=== PATIENT | female | born 1985 | race Caucasian/White ===

== ENCOUNTER 2016-10-08 09:44 | Emergency (ER) | payer OTHER, SELFPAY ==
[2016-10-08] MEDS ORDERED: NS 1,000 ML IV ONE (10:00)
--- NOTE | 2016-10-08 10:17 | ECGEPIP ---
Stationary ECG Study [facility] - ED Test Date: 2016-10-08 Pat Name: KUNAL SERNA Department: Room: - Gender: F Grape Pruner: [place]IC[place] : 1985 Requested By: Izzy Baires Order Number: [id number] Reading MD: Izzy Baires Measurements Intervals [place] Rate: 98 P: 60 [place]: 140 QRS: 39 QRSD: 98 T: 35 QT: 347 QTc: 445 Interpretive Statements SINUS RHYTHM WITH SINUS ARRHYTHMIA NO PRIOR FOR COMPARISON Electronically Signed On 10-08-2016 10:17:11 EDT by Izzy Baires
[2016-10-08 10:49] LABS: METHADONE URINE NEGATIVE (NEGATIVE)
--- NOTE | 2016-10-08 11:12 | REP ---
PA and lateral chest: There are no comparisons. The lung guthrie are clear. The cardiac size is normal The zaida, mediastinum, and bony thorax are unremarkable. Impression: Negative PA and lateral chest. Body piercing jewelry is incidentally noted. Signed by Natanael Mac MD 10/08/2016 11:03 A
[2016-10-08 11:13] LABS: CONTROL LINE UCG INT CTR LINE PRESENT
[2016-10-08 13:32] VITALS: BP 131/78
== END 2016-10-08 13:45 | disposition home or self-care (01) ==
LOC: M ED 09:44
DX: T40.1X1A Poisoning by heroin, accidental (unintentional), initial encounter (principal); Z72.0 Tobacco use

== ENCOUNTER 2018-11-04 15:07 | Inpatient (IN) | payer SELFPAY ==
[~2018-11-04] VITALS: Ht 167.6 cm; Wt 81.8 kg
[2018-11-04] VITALS (7 sets, daily range): BP systolic 125–150; BP diastolic 55–69; O2SAT 97–98
[2018-11-04] MEDS ORDERED: KETOROLAC 30 MG/ML VIAL (J1885) IV ONE (16:00)
[2018-11-04] MEDS ORDERED: NS 1,000 ML IV ONE (16:00)
[2018-11-04 16:01] LABS: HEMATOCRIT 36.6 % (36.0-47.0); HEMOGLOBIN 11.9 g/dl (12.0-15.5); MEAN CORPUSCULAR HEMOGLOBIN 29.8 pg (27.0-33.0); MEAN CORPUSCULAR HGB CONC 32.5 g/dl (32.0-36.5); MEAN CORPUSCULAR VOLUME 91.5 fl (80.0-96.0); PLATELET COUNT, AUTOMATED 313 10^3/uL (150-450); WHITE BLOOD COUNT 11.7 10^3/uL (4.0-10.0)
[2018-11-04] MEDS ORDERED: ISOVUE-370 76% 100ML VIAL (Q9967) As Ordered ONE (16:04)
[2018-11-04] MEDS ORDERED: methylPREDNISolone INJ 125 MG/2 ML VIAL (J2930) IV ONE (16:15)
[2018-11-04 16:23] LABS: BLOOD UREA NITROGEN 12 MG/DL (7-18); C REACTIVE PROTEIN QUANTITATIV 2.35 MG/DL (0.00-0.30); CALCIUM LEVEL 8.9 MG/DL (8.5-10.1); CARBON DIOXIDE LEVEL 25 MEQ/L (21-32); CHLORIDE LEVEL 111 MEQ/L (98-107); CREATININE FOR GFR 0.59 MG/DL (0.55-1.30); GLOMERULAR FILTRATION RATE > 60.0 (>60); GLUCOSE, FASTING 70 MG/DL (70-100); HCG, SERUM QUANTITATIVE 760 MIU/ML; POTASSIUM SERUM 4.3 MEQ/L (3.5-5.1); SODIUM LEVEL 141 MEQ/L (136-145)
[2018-11-04 16:30] LABS: HCG, SERUM QUALITATIVE POSITIVE (NEGATIVE)
--- NOTE | 2018-11-04 16:37 | REP ---
Clinical: Right-sided swelling. Technique: Axial contrast enhanced images from the mid skull through the thoracic inlet with coronal and sagittal re-formations using 100 ml Isovue 370 intravenous contrast material. Findings: Marked right facial swelling with infiltration and phlegmonous changes overlying the right maxillary region and extending inferiorly to the right submandibular portion of the neck with suspected extension into the right side of the oropharynx. Early progression to abscess formation is suspected and findings are likely related to dental infectious process with abnormal blastic appearance along the right side of the maxilla at the midline as well as extending into the right maxillary sinus and a second area of dental infection involving the right posterior molar along the mandible. The airway remains patent and essentially midline although there is mild mass effect along the right side of the oropharynx. The parapharyngeal and retropharyngeal space is appear relatively normal. Associated right-sided adenopathy is appreciated. Vascular structures are intact and normal/symmetric. Bilateral orbits are symmetric and normal. Impression: Significant infectious process likely extending from dental abscess with blastic expansion to the right of midline maxilla as well as from the dental abscess related to the posterior molar in the right mandible. Marked phlegmonous changes are noted in the subcutaneous tissues and within the right side of the oropharynx surrounding the right mandible with suggestions for impending abscess formation. Likely extension into the right maxillary sinus and associated adenopathy noted. Electronically Signed by Kael Martinez MD 11/04/2018 04:29 P
[2018-11-04 16:41] LABS: ERYTHROCYTE SEDIMENTATION RATE 77 mm/hr (0-20)
[2018-11-04] MEDS ORDERED: AMPICILLIN SOD/SULBACTAM SOD 3 GM in D5W MINI-BAG PLUS 100 ML IV ONE (16:45)
[2018-11-04] MEDS ORDERED: CHLORHEXIDINE GLUCONATE 0.12 % 15ML UDC (PERIDEX ORAL RINSE) As Ordered ONE (17:45)
[2018-11-04] MEDS ORDERED: LIDOCAINE 2% W/ EPINEPHRINE 1.7 ML DENTAL INJ As Ordered ONE (17:46)
[2018-11-04] MEDS ORDERED: LIDOCAINE W/EPINEPHRINE 1% 20ML VIAL As Ordered ONE (17:48)
[2018-11-04] MEDS ORDERED: PHENYLEPHRINE 0.5% NASAL SPRAY 15 ML As Ordered ONE (17:49)
--- NOTE | 2018-11-04 18:10 | HPEPDOC ---
General Date of Admission Date of Service: Nov 04, 2018 Chief Complaint The patient is a 33-year-old female admitted with a reason for visit of Dental Problem. History of Present Illness 33f with history of depression and polysubstance abuse, post- 4 days who presents with facial swelling. This started on monday two days prior to giving . She cracked a tooth in her right lower jaw and developed an abcess in the area. She was treated with iv clindamycin while admitted for her delivery and was dced with oral clinda on monday. She now presents with worsening of the swelling despite the antibiotics. She denies any fever, cp, sob. a full ros was performed and negative except as above Home Medications No Active Prescriptions or Reported Meds Allergies Coded Allergies: No Known Allergies (Verified , 05/22/10) Past Medical History Medical History depression, polysubstance abuse Surgical History no significant hx Family History Significant Family History: Noncontributory Social History * Smoker: current smoker Alcohol: Denies Drugs: cocaine, heroin, IV drug use A-FIB/CHADSVASC A-FIB History Current/History of A-Fib/PAF?: No Current PO Anticoag Therapy: No Age/Risk Factor Scoring CHADSVASC: CHADSVASC Response (Comments) Value Age Risk Factor Age < 65 years old 0 Gender Risk Factor Female 1 Hx of CHF No 0 Hx of HTN No 0 Hx of Stroke/TIA/or VTE No 0 Hx of Diabetes No 0 Hx of Vascular Disease No 0 Total 1 Treatment Treatment ordered: NONE Reason Anticoagulant not given: Not indicated/[id number] Physical Examination General Exam: Positive: Alert, No Acute Distress Eye Exam: Positive: PERRLA, Conjunctiva & lids normal, EOMI; Negative: Sclera icteric ENT Exam: Positive: Atraumatic, Mucous membr. moist/pink, Pharynx Normal, Other ENT (swelling in right face and neck) Neck Exam: Positive: Supple; Negative: JVD, thyromegaly Chest Exam: Positive: Clear to auscultation, Normal air movement Heart Exam: Positive: Rate Normal, Regular Rhythm, Normal S1, Normal S2; Negative: Murmurs, Rubs Telemetry: Positive: No significant arrhythmia Abdomen Exam: Positive: Normal bowel sounds, Soft; Negative: Tenderness, Hepatospenomegaly Extremity Exam: Positive: Normal pulses; Negative: Clubbing, Cyanosis, Edema Skin Exam: Positive: Nl turgor and temperature; Negative: Breakdown, Lesion Neuro Exam: Positive: Normal Gait, Normal Speech, Cranial Nerves 3-12 NL, Reflexes 2+ Psych Exam: Positive: Mental status NL, Mood NL, Oriented x 3 Vital Signs Vital Signs Date Time Temp Pulse Resp B/P (MAP) Pulse Ox O2 Delivery O2 Flow Rate FiO2 11/04/18 17:01 98.7 66 125/71 (89) 99 Laboratory Data Labs 24H Laboratory Tests 2 11/04/18 15:43: Nucleated Red Blood Cells % (auto) 0.0, Erythrocyte Sedimentation Rate 77H, Anion Gap 5L, Glomerular Filtration Rate > 60.0, Blood Urea Nitrogen 12, Creatinine 0.59, Sodium Level 141, Potassium Level 4.3, Chloride Level 111H, Carbon Dioxide Level 25, Calcium Level 8.9, C-Reactive Protein, Quantitative 2.35H, Human Chorionic Gonadotropin, Qual POSITIVEA, Human Chorionic Gonadotropin, Quant 760 11/04/18 15:46: POC Beta HCG, Quantitative 824.8 CBC/BMP Laboratory Tests 11/04/18 15:43 Red Blood Count 4.00, Mean Corpuscular Volume 91.5, Mean Corpuscular Hemoglobin 29.8, Mean Corpuscular Hemoglobin Concent 32.5, Red Cell Distribution Width 14.1, Calcium Level 8.9 Microbiology Microbiology 11/04/18 Blood Culture, Received Pending 11/04/18 Blood Culture, Received Pending Assessment/Plan 33f p/w dental abscess being brought urgently to OR no medical contraindication for surgery continue unasyn per surgery polysubstance abuse pt denies any current drug use monitor for signs of withdrawal Plan / VTE VTE Prophylaxis Ordered?: Yes VTE Exclusion Mechanical Proph: N/A:VTE Prophy Ordered VTE Exclusion Pharmacological: Other (going to surgery today) TABATHA SHIPMAN MD Nov 04, 2018 18:10
[2018-11-04] MEDS ORDERED: LIDOCAINE 2% INJ 100 MG/5 ML SDV (FOR ANES.) As Ordered ONE (19:09)
[2018-11-04] MEDS ORDERED: fentaNYL 250 MCG/5 ML INJECTION (J3010) As Ordered ONE (19:09)
[2018-11-04] MEDS ORDERED: ROCURONIUM BROMIDE 50 MG/5 ML VIAL As Ordered ONE (19:09)
[2018-11-04] MEDS ORDERED: SUGAMMADEX SODIUM 500 MG/5 ML VIAL (BRIDION) As Ordered ONE (19:09)
[2018-11-04] MEDS ORDERED: MIDAZOLAM INJ 2 MG/2 ML VIAL (J2250) As Ordered ONE (19:09)
[2018-11-04] MEDS ORDERED: ONDANSETRON 4MG/2ML VIAL (J2405) As Ordered ONE (19:09)
[2018-11-04] MEDS ORDERED: propofoL 200 MG/20 ML VIAL As Ordered ONE (19:09)
[2018-11-04] MEDS ORDERED: dexameTHASONE 4 MG/ML 1ML VIAL (J1100) As Ordered ONE (19:09)
[2018-11-04] MEDS ORDERED: KETOROLAC 60 MG/2 ML VIAL (J1885) As Ordered ONE (19:09)
[2018-11-04] MEDS ORDERED: METOCLOPRAMIDE INJ 10MG/2ML VIAL (J2765) IV PRN (19:15)
[2018-11-04] MEDS ORDERED: LR 1,000 ML IV SCH (19:15)
[2018-11-04] MEDS ORDERED: PERCOCET 5MG/325MG TAB PO PRN (19:15)
[2018-11-04] MEDS ORDERED: ONDANSETRON 4MG/2ML VIAL (J2405) IV PRN (19:15)
[2018-11-04] MEDS ORDERED: fentaNYL 100 MCG/2 ML INJECTION (J3010) IV PRN (19:15)
[2018-11-04] MEDS ORDERED: MEPERIDINE INJ 25 MG/ML VIAL (J2175) IV PRN (19:15)
[2018-11-04] MEDS: AMPICILLIN SOD/SULBACTAM SOD 3 GM in D5W MINI-BAG PLUS 100 ML IV SCH (23:09)
[2018-11-05 00:30] VITALS: BP 129/74
[2018-11-05 01:30] VITALS: BP 115/62
[2018-11-05 02:00] VITALS: O2SAT 98
[2018-11-05 04:00] VITALS: O2SAT 98
[2018-11-05 05:30] VITALS: BP 119/60
[2018-11-05] MEDS: AMPICILLIN SOD/SULBACTAM SOD 3 GM in D5W MINI-BAG PLUS 100 ML IV SCH ×3 (05:32→17:00)
--- NOTE | 2018-11-05 08:13 | RO ---
DATE OF PROCEDURE: 11/04/2018 SURGEON: Emanuel Sosa MD, DMD PREOPERATIVE DIAGNOSIS: Right submandibular and submasseteric space infections and abscessed tooth #31. POSTOPERATIVE DIAGNOSIS: Status post the above procedure performed, incision and drainage of the aforementioned abscesses and surgical extraction of tooth #31. Anesthesia used general endotracheal anesthesia via nasal ray. SPECIMEN: Aerobes, anaerobes cultures, sensitivities. ANESTHESIA: General endotracheal anesthesia via oral ray. INDICATIONS FOR SURGERY: Alisha is a pleasant 33-year-old female who is 4 days status post childbirth presented to the emergency room this afternoon complaining of tooth pain as well as worsening right facial and neck swelling that has been worsening on a daily basis for the past 7 days. She does report that she has trismus and dysphagia and worsening she does deny fevers. Her clinical examination reveals that she has significant right facial and neck swelling that is indurated with no erythema and tenderness to palpation especially in the right neck area. Her mouth opening is about 10 mm anterior incisors laid between her and teeth. She does have a very soft and non elevated floor of mouth. Her right posterior lower vestibule is soft. However, very tender to palpation and she does have a grossly decayed tooth #31. He her white count is 11,000 on admission and she is afebrile. Vital signs stable. CT scan was reviewed which shows fluid collections and loculations in the right submandibular, submasseteric and slightly into the sublingual space with no airway deviation. A complete history and physical was performed as in the patient's chart and informed consent was obtained and discussed with the patient and was signed. DESCRIPTION OF PROCEDURE: The patient was taken back to the operating room. She was laid supine on the operating room table. Ulnar nerve protectors were placed. Noninvasive cardiac monitors were applied. At that point the patient underwent general anesthesia was intubated with an oral ray. She was then prepped and draped in the usual sterile fashion. A time-out procedure was performed to identify the patient procedure and any other precautions. She was already given preoperative antibiotics in the emergency room earlier and did not meet criteria for a next dose until later tonight. Moist throat pack was inserted in the patient's oropharynx followed by the administration of four carpules of 2% lidocaine with 1:100,000 epinephrine as local infiltration and blocks. The full-thickness flap was released distal tooth #31 into the sulcus of tooth number 31, 30, 29, 28, 27. Flap was fully reflected and dissected subperiosteally all the way down to the inferior border of the mandible where an abundant amount purulence was encountered and sampled for aerobes, anaerobes cultures and sensitivity. At this point a small amount of buccal bone was removed from tooth #31 which was elevated out with ease with forceps and a straight elevator socket was copiously irrigated and curetted and an abundant amount of debridement and curettage and irrigation in the subperiosteal area of the right posterior mandible was performed all the way down to the inferior border of the mandible. At this point attention was then given to the right neck where a 15 blade was used to make a 1.5 cm incision about two fingerbreadths below the inferior border of the mandible and a skin incision was made through skin and subcutaneous tissue. Tonsils were then used for blunt dissection through the platysma muscle into the subcutaneous tissue into the submandibular space sublingual space. Finger blunt dissection was also performed into the aforementioned spaces to break up any loculations and remove any necrotic tissue. The spaces were copiously irrigated. Dominik drains were then placed in the right submandibular and right submasseteric spaces and secured to the skin with 3-0 silk sutures. The neck dressing was placed and the oral cavity was irrigated and suctioned and as I mentioned before the intraoral flap was closed primarily with 3-0 chromic sutures. The throat pack was removed. The patient was awakened from general anesthesia and taken back to the PACU. Estimated blood loss about 10 mL. There were two drains placed, once in the right submandibular and one in the right submasseteric spaces. 1/4 inches Dominik drains. COMPLICATIONS: None to mention at time of surgery.
[2018-11-05] MEDS ORDERED: NICOTINE 21MG/24HR 1 EA TRANSDERMAL TD SCH (09:00)
[2018-11-05] MEDS ORDERED: ACETAMINOPHEN TAB 650MG DOSE (2X325MG) PO PRN (11:00)
[2018-11-05 14:00] VITALS: BP 117/59
[2018-11-05] MEDS ORDERED: IBUPROFEN 400 MG TAB PO SCH (14:00)
--- NOTE | 2018-11-05 14:09 | IPNPDOC ---
Text Note Date of Service The patient was seen on 11/05/18. NOTE Subjective: Patient is a 33-year-old female who recently gave who came back to the hospital with complaint of facial swelling. Patient was seen by oral surgery who took the patient to the operating room to do an incision and drainage on a dental abscess. Patient says she was doing well today. She still was in some pain in the dressing was bothering her however, she felt better now that the abscess was drained. Oral surgery says that they will come and reevaluate her later on tonight but she'll most likely stay for one more night. Patient was asking for food. No acute events overnight. Review of systems General: Patient denies fevers HEENT: Patient denies headaches Cardiovascular: Patient denies chest pain Respiratory: Patient denies shortness of breath, cough GI: Patient denies abdominal pain, nausea, vomiting, diarrhea : Patient denies pain or difficulty with urination Neurological: Patient denies numbness or tingling in extremities Extremities: Patient denies swelling or pain in extremities Objective: Vitals: (see below) General: No acute distress, laying comfortably in bed. HEENT: Patient had facial swelling on the right side of her face and a drain in place. Neck: No JVD or lymphadenopathy Cardiac: RRR, No murmurs Pulm: Clear to auscultation b/l. No wheezing, rhonchi Abd: NT/ND + BS Ext: No edema Labs (see below) Images: A CT of the neck with contrast performed on 11/04/2017 showed significant infectious process likely extending from dental abscess with blastic expansion to the right of the midline maxilla as well as dental abscess related to the posterior molar in the right mandible. Markedly phlegmonous changes are noted in the subcutaneous tissue and within the right side of the oropharynx surrounding the right mandible with suggestions for impending abscess formation. Likely extension into the right maxillary sinus and associated adenopathy noted. Assessment/Plan 1. Dental abscess. Patient is being followed by oral surgery. We will continue the patient on Unasyn. 2. Nicotine dependence, patient would like to start nicotine replacement therapy as she would like to quit smoking. 3. Recently . Patient is doing well and her babies were in the room with her. Patient is breast-feeding. DVT prophy: Thromboembolic deterrent stockings Dispo: Pending clinical improvement. I saw and evaluated the patient. I agree with the findings and plan of care as documented in the above note VSShannen, I+O VSShannen, I+O Laboratory Tests 11/04/18 15:43 Red Blood Count 4.00, Mean Corpuscular Volume 91.5, Mean Corpuscular Hemoglobin 29.8, Mean Corpuscular Hemoglobin Concent 32.5, Red Cell Distribution Width 14.1, Calcium Level 8.9 Vital Signs Date Time Temp Pulse Resp B/P (MAP) Pulse Ox O2 Delivery O2 Flow Rate FiO2 11/05/18 05:30 98.8 52 18 119/60 (79) 98 11/05/18 04:00 Room Air I&O- Last 24 Hours up to 6 AM 11/05/18 06:00 Intake Total 4510 ml Balance 4510 ml ANDREW MACIAS DO Nov 05, 2018 14:09 MEENAKSHI PEREZ MD Nov 13, 2018 12:09
[2018-11-05] MEDS ORDERED: PERI0.126 PO (18:07)
[2018-11-05] MEDS ORDERED: AUGM875T28 PO (18:07)
[2018-11-05] MEDS ORDERED: IBUP1TAB7 PO ×2 (18:07→18:10)
[2018-11-05] MEDS ORDERED: NICO21DI6 TOP (18:10)
--- NOTE | 2018-11-05 18:20 | DS.PDOC ---
Discharge Summary General Date of Admission 11/04/18 Date of Discharge 11/05/18 Attending Physician: MEENAKSHI PEREZ MD Specialist/Consultants Involve: JOCELYN HERNANDEZ DMD Discharge Summary PROCEDURES PERFORMED DURING STAY: Incision and drainages of mandibular dental abscess ADMITTING/DISCHARGE DIAGNOSES: 1. Dental abscess 2. Nicotine dependence 3. Recently COMPLICATIONS/CHIEF COMPLAINT: Facial swelling and pain in mouth. HISTORY OF PRESENT ILLNESS/HOSPITAL COURSE: Patient is a 33-year-old female who is 5 days who presented to the hospital on 11/04/2018 with increased facial swelling. Patient was still given IV clindamycin while she was in the hospital for delivery of her child and was discharged home on oral clindamycin on 11/02/2018. Patient swelling continuously got worse to the point where she had a come to the hospital. Dr. Hernandez from oral surgery came and saw the patient last night and performed an incision and drainage of a mandibular dental abscess. Patient was started on IV Unasyn. Dr. Hernandez came and saw the patient at about 18:00 and the patient was ready for discharge. Patient was discharged home with a ten-day course of Augmentin, chlorhexidine mouthwash, and 800 mg of ibuprofen. Patient also wanted to talk about smoking cessation and after talking with pharmacy, they decided that the best plan of action was for her to use nicotine replacement patches and start her on the 21 mg per day patch and she should follow-up with a primary care provider to continue with the st epdown dosage for smoking cessation. Patient was discharged home on 11/05/2018. DISCHARGE MEDICATIONS: Please see below. ALLERGIES: Please see below. PHYSICAL EXAMINATION ON DISCHARGE: Vitals: (see below) General: No acute distress, laying comfortably in bed. HEENT: Patient has swelling on the right side of her face and there was a drain in place. Neck: No JVD or lymphadenopathy Cardiac: RRR, No murmurs Pulm: Clear to auscultation b/l. No wheezing, rhonchi Abd: NT/ND + BS Ext: No edema or cyanosis LABORATORY DATA: Please see below. IMAGING: A CT of the neck with contrast performed on 11/04/2018 showed significant infectious process likely extending from dental abscess with blastic expansion to the right of the midline maxilla as well as from the dental abscess related to the posterior molar in the right mandible. Markedly phlegmonous changes are noted in the subcutaneous tissues and within the right side of the oropharynx surrounding the right mandible with suggestions for impending abscess formation. Likely extension into the right maxillary sinus and associated adenopathy noted. PROGNOSIS: Good ACTIVITY: As tolerated. DIET: Soft, no straws DISCHARGE PLAN/DISPOSITION: Discharge home DISCHARGE INSTRUCTIONS: 1. Follow-up with Dr. Hernandez on Monday as scheduled. 2. Take Augmentin [id number] twice a day for 10 days. 3. Use 10 mL of chlorhexidine mouthwash rinse and spit 4 times a day. 4. Take ibuprofen 800 mg 3 times a day for 5 days for pain control. 5. Use 21 mg patches for smoking cessation. Follow-up with primary care provider within 5-10 days for further instruction and refills. 6. Return to ED if symptoms worsen. DISCHARGE CONDITION: Stable. I saw and evaluated the patient. I agree with the findings and plan of care as documented in the documenters note. I spent 45 minutes coordinating this patient's discharge. Vital Signs/I&Os Vital Signs Date Time Temp Pulse Resp B/P (MAP) Pulse Ox O2 Delivery O2 Flow Rate FiO2 11/05/18 14:00 98.2 81 19 117/59 (78) 99 11/05/18 04:00 Room Air I&O- Last 24 Hours up to 6 AM 11/05/18 05:59 Intake Total 3670 ml Balance 3670 ml Microbiology Microbiology 11/04/18 Blood Culture - Preliminary, Resulted No growth after 24 hours . All specim... 11/04/18 Blood Culture - Preliminary, Resulted No growth after 24 hours . All specim... 11/04/18 Gram Stain - Final, Resulted 11/04/18 Wound Culture, Resulted Pending 11/04/18 Anaerobic Culture, Resulted Pending Discharge Medications Scheduled Amoxicillin/Potassium Clav (Augmentin 875-125 Tablet) 1 Each Tablet, 1 TAB PO BID Chlorhexidine Gluconate (Peridex) 473 Ml Mouthwash, 10 ML PO QID Swish and spit Ibuprofen (Ibuprofen) 800 Mg Tablet, 1 TAB PO TID for pain Nicotine (Nicoderm Cq) 21 Mg/24 Hr Patch.td24, 1 PATCH TOP DAILY for smoking c essation Allergies Coded Allergies: No Known Allergies (Verified , 05/22/10) ANDREW MACIAS DO Nov 05, 2018 18:20 MEENAKSHI PEREZ MD Nov 13, 2018 12:09
== END 2018-11-05 18:56 | disposition home or self-care (01) | DRG 98 ==
LOC: M ED 15:07 → M SDC 18:17 → M MSPAV 20:37 → M SDC 11-05 10:44 → M MSPAV 11-05 10:47
PROVIDERS: ADMIT Hospitalist; ATTEND Internal Medicine
PROC: 0CTX0Z0 Resection of Lower Tooth, Single, Open Approach (ICD-10-PCS; principal; 2018-11-04 17:25)
PROC: 0W950ZZ Drainage of Lower Jaw, Open Approach (ICD-10-PCS; 2018-11-04 17:25)
DX: K04.7 Periapical abscess without sinus (principal); F17.200 Nicotine dependence, unspecified, uncomplicated; Z79.899 Other long term (current) drug therapy

== ENCOUNTER → 2023-02-10 | Outpatient (CLI) | payer OTHER ==
[~2023-02-10] MED LIST: AUGM875T28 PO; IBUP1TAB7 PO; NICO21DI6 TOP; PERI0.126 PO
== END ==
LOC: M PLALAB 12:16
PROVIDERS: ATTEND Internal Medicine Infectious Disease
DX: B18.2 Chronic viral hepatitis C (principal)